=== PATIENT | female | born 1930 | race Caucasian/White ===

== ENCOUNTER → 2016-04-02 | Outpatient (CLI) | payer MEDICARE ==
[~2016-04-02] MED LIST: AEROSPAN80 MCG/Act; CIPRO 250MG TA250 MG PO; CLONIDINE0.1 MG PO; CRESTOR20 MG PO; CRESTOR5 MG PO; LASIX20 MG; LIDOCAINE 5%35.44 GM TP; LIDODERM PATCH TP; LISINOPRIL20 MG; PLAVIX 75MG TAB75 MG; PLAVIX 75MG TAB75 MG PO; PRILOSEC 20MG20 MG PO; PROPRANOLOL HCL20 MG PO; QVAR0.08 MG/AC; SINGULAIR10 MG PO; TYLENOL W CODEIN1 ML PO; VENTOLIN0.09 MG; ZANTAC 150MG T150 MG; ZYRTEC 10MG10 MG; ZYRTEC10 MG PO; [UNRECOGNIZED DRUG - OTHER]
== END ==
LOC: RAD 09:00
DX: R10.84 Generalized abdominal pain (principal); R13.14 Dysphagia, pharyngoesophageal phase

== ENCOUNTER → 2017-05-19 | Outpatient (CLI) | payer MEDICARE ==
[2015-06-08 17:50] VITALS: BP 124/75
[2017-05-19 10:23] LABS: EOS # 0.1 (0.04-0.40); EOS % 1.3 % (1.0-5.0); HEMATOCRIT 40.9 % (37.0-47.0); HEMOGLOBIN 13.7 g/dL (12.5-16.0); LYMPH# 1.5 (1.50-4.00); MEAN CELL VOLUME 90 fl (78-100); MEAN CORPUSCULAR HEMOGLOBIN 30 pg (27-31); MEAN CORPUSCULAR HGB CONC 34 g/dL (33-37); MONO # 0.6 (0.20-0.80); NEU # 4.7 (1.40-6.50); PLATELET COUNT 227 K/mm3 (130-400); RED BLOOD COUNT 4.57 M/mm3 (4.10-5.30); RED CELL DISTRIBUTION WIDTH 13.8 % (11.5-14.5); WHITE BLOOD COUNT 6.9 K/mm3 (4.8-10.8)
[2017-05-19 11:01] LABS: ALBUMIN 3.9 g/dL (3.5-5.0); BUN/CREATININE RATIO 12.4 (6.0-26.0); CALCIUM 9.4 mg/dL (8.4-10.2); POTASSIUM 4.7 mmol/L (3.6-5.0); TOTAL BILIRUBIN 0.9 mg/dL (0.2-1.3)
== END ==
LOC: LAB 09:32
PROVIDERS: Nurse Practitioner Family
DX: J98.4 Other disorders of lung (principal); G20 Parkinson's disease; I10 Essential (primary) hypertension; R53.81 Other malaise; I63.9 Cerebral infarction, unspecified

== ENCOUNTER 2017-09-10 13:05 | Emergency (ER) | payer MEDICARE ==
[~2017-09-10] VITALS: Wt 76.4 kg
[2017-09-10] MEDS ORDERED: CARBIDOPA/LEVOD1 TE1 PO (13:28)
[2017-09-10 14:46] LABS: EOS # 0.1 (0.04-0.40); HEMATOCRIT 37.2 % (37.0-47.0); HEMOGLOBIN 12.5 g/dL (12.5-16.0); LYMPH# 1.7 (1.50-4.00); MEAN CELL VOLUME 90 fl (78-100); MEAN CORPUSCULAR HEMOGLOBIN 30 pg (27-31); MEAN CORPUSCULAR HGB CONC 34 g/dL (33-37); MEAN PLATELET VOLUME 9.6 fl (7.4-10.4); MONO # 0.7 (0.20-0.80); NEU # 4.7 (1.40-6.50); PLATELET COUNT 199 K/mm3 (130-400); RED BLOOD COUNT 4.14 M/mm3 (4.10-5.30); RED CELL DISTRIBUTION WIDTH 13.7 % (11.5-14.5); WHITE BLOOD COUNT 7.2 K/mm3 (4.8-10.8)
[2017-09-10 14:56] LABS: ALBUMIN 3.6 g/dL (3.5-5.0); BUN/CREATININE RATIO 10.4 (6.0-26.0); CALCIUM 8.5 mg/dL (8.4-10.2); POTASSIUM 4.1 mmol/L (3.6-5.0); TOTAL BILIRUBIN 0.4 mg/dL (0.2-1.3); TOTAL PROTEIN 6.4 g/dL (6.3-8.2)
[2017-09-10 15:05] LABS: PROTHROMBIN TIME 9.1 SECONDS (9.0-12.0)
[2017-09-10 15:07] LABS: URINE APPEARANCE CLEAR; URINE BILIRUBIN NEGATIVE (NEGATIVE); URINE BLOOD NEGATIVE (NEGATIVE); URINE COLOR YELLOW; URINE GLUCOSE NEGATIVE (NEGATIVE); URINE KETONE NEGATIVE (NEGATIVE); URINE LEUKOCYTE ESTERASE NEGATIVE (NEGATIVE); URINE NITRATE NEGATIVE (NEGATIVE); URINE PROTEIN(semi-quant) NEGATIVE (NEGATIVE); URINE UROBILINOGEN NORMAL (NORMAL)
[2017-09-10 15:08] LABS: URINE WBC 0-1 /hpf (0-3)
[2017-09-10 15:50] VITALS: BP 162/72
== END 2017-09-10 15:59 | disposition home or self-care (01) ==
LOC: ED 13:05
PROVIDERS: Physician Assistant
DX: K92.2 Gastrointestinal hemorrhage, unspecified (principal); Z85.038 Personal history of other malignant neoplasm of large intestine; J45.909 Unspecified asthma, uncomplicated; I69.951 Hemiplegia and hemiparesis following unspecified cerebrovascular disease affecting right dominant side; Z79.02 Long term (current) use of antithrombotics/antiplatelets

== ENCOUNTER → 2017-09-16 | Outpatient (CLI) | payer MEDICARE ==
[2017-09-10 15:50] VITALS: BP 162/72
[~2017-09-16] MED LIST changes: +CARBIDOPA/LEVOD1 TE1 PO
[2017-09-16 09:20] LABS: EOS # 0.1 (0.04-0.40); HEMATOCRIT 39.3 % (37.0-47.0); HEMOGLOBIN 13.2 g/dL (12.5-16.0); LYMPH# 1.8 (1.50-4.00); MEAN CELL VOLUME 91 fl (78-100); MEAN CORPUSCULAR HEMOGLOBIN 31 pg (27-31); MEAN CORPUSCULAR HGB CONC 34 g/dL (33-37); MONO # 0.6 (0.20-0.80); NEU # 3.8 (1.40-6.50); PLATELET COUNT 203 K/mm3 (130-400); RED BLOOD COUNT 4.33 M/mm3 (4.10-5.30); RED CELL DISTRIBUTION WIDTH 13.8 % (11.5-14.5); WHITE BLOOD COUNT 6.4 K/mm3 (4.8-10.8)
== END ==
LOC: LAB 08:43
PROVIDERS: Nurse Practitioner Family
DX: K62.5 Hemorrhage of anus and rectum (principal)

== ENCOUNTER → 2018-08-20 | Outpatient (CLI) | payer MEDICARE ==
[2018-08-20 09:47] LABS: EOS # 0.1 (0.04-0.40); EOS % 1.7 % (1.0-5.0); HEMOGLOBIN 14.4 g/dL (12.5-16.0); LYMPH# 1.8 (1.50-4.00); MEAN CELL VOLUME 90 fl (78-100); MEAN CORPUSCULAR HEMOGLOBIN 31 pg (27-31); MEAN CORPUSCULAR HGB CONC 34 g/dL (33-37); MEAN PLATELET VOLUME 9.8 fl (7.4-10.4); MONO # 0.5 (0.20-0.80); NEU # 3.6 (1.40-6.50); PLATELET COUNT 199 K/mm3 (130-400); RED BLOOD COUNT 4.65 M/mm3 (4.10-5.30); RED CELL DISTRIBUTION WIDTH 13.9 % (11.5-14.5); WHITE BLOOD COUNT 6.1 K/mm3 (4.8-10.8)
[2018-08-20 10:04] LABS: ALBUMIN 3.9 g/dL (3.4-4.8); AST-SGOT 18 U/L (5-34); CALCIUM 9.4 mg/dL (8.3-10.5); CARBON DIOXIDE 26 mmol/L (23-31); GLUCOSE 96 mg/dL (65-105); POTASSIUM 4.2 mmol/L (3.5-5.1); SODIUM 141 mmol/L (136-145); TOTAL BILIRUBIN 0.8 mg/dL (0.2-1.2); TOTAL PROTEIN 6.8 g/dL (6.2-8.1)
[2018-08-20 11:42] LABS: ALT/SGPT < 6 U/L (0-55)
== END ==
LOC: LAB 09:30
PROVIDERS: Physician Assistant
DX: Z76.89 Persons encountering health services in other specified circumstances (principal); I63.9 Cerebral infarction, unspecified; M54.9 Dorsalgia, unspecified; G89.29 Other chronic pain; I10 Essential (primary) hypertension; E78.5 Hyperlipidemia, unspecified; G20 Parkinson's disease; J98.4 Other disorders of lung; Z87.19 Personal history of other diseases of the digestive system

== ENCOUNTER → 2018-12-03 | Outpatient (CLI) | payer MEDICARE ==
[2018-12-03 15:57] LABS: ALBUMIN 3.8 g/dL (3.4-4.8); POTASSIUM 3.5 mmol/L (3.5-5.1); SODIUM 143 mmol/L (136-145)
[2018-12-03 15:58] LABS: CALCIUM 8.7 mg/dL (8.3-10.5)
[2018-12-03 15:59] LABS: GLUCOSE 113 mg/dL (65-105); TOTAL PROTEIN 6.3 g/dL (6.2-8.1)
[2018-12-03 16:01] LABS: CARBON DIOXIDE 26 mmol/L (23-31); TOTAL BILIRUBIN 0.7 mg/dL (0.2-1.2)
[2018-12-03 16:05] LABS: AST-SGOT 13 U/L (5-34)
[2018-12-03 16:16] LABS: EOS # 0.2 (0.04-0.40); EOS % 2.6 % (1.0-5.0); HEMOGLOBIN 12.9 g/dL (12.5-16.0); LYMPH# 1.8 (1.50-4.00); MEAN CELL VOLUME 92 fl (78-100); MEAN CORPUSCULAR HEMOGLOBIN 31 pg (27-31); MEAN CORPUSCULAR HGB CONC 33 g/dL (33-37); MEAN PLATELET VOLUME 10.2 fl (7.4-10.4); MONO # 0.7 (0.20-0.80); PLATELET COUNT 241 K/mm3 (130-400); RED BLOOD COUNT 4.23 M/mm3 (4.10-5.30); RED CELL DISTRIBUTION WIDTH 14.3 % (11.5-14.5); WHITE BLOOD COUNT 6.8 K/mm3 (4.8-10.8)
[2018-12-03 16:17] LABS: ALT/SGPT < 6 U/L (0-55)
[2018-12-03 16:57] LABS: PH-URINE 5.5 (5.0 - 8.0); URINE APPEARANCE CLEAR; URINE COLOR YELLOW; URINE GLUCOSE NEGATIVE (NEGATIVE); URINE PROTEIN(semi-quant) TRACE mg/dL (NEGATIVE)
[2018-12-03 16:58] LABS: URINE BILIRUBIN NEGATIVE (NEGATIVE); URINE BLOOD 50 ery/uL (NEGATIVE); URINE KETONE NEGATIVE (NEGATIVE); URINE LEUKOCYTE ESTERASE 2+ (NEGATIVE); URINE MUCUS PRESENT (NOT PRESENT); URINE NITRATE NEGATIVE (NEGATIVE); URINE UROBILINOGEN 1 mg/dL (NORMAL)
[2018-12-03 17:20] LABS: ERYTHROCYTE SEDIMENTATION RATE 21 mm/hr (0-30)
== END ==
LOC: RAD 14:55
PROVIDERS: Physician Assistant
DX: J98.4 Other disorders of lung (principal); G20 Parkinson's disease; I10 Essential (primary) hypertension; E78.5 Hyperlipidemia, unspecified; I63.9 Cerebral infarction, unspecified; J30.9 Allergic rhinitis, unspecified; J44.9 Chronic obstructive pulmonary disease, unspecified; Z99.81 Dependence on supplemental oxygen

== ENCOUNTER 2018-12-04 08:36 | Outpatient (RCR) | payer MEDICARE | END 2018-12-04 09:00 | disposition still patient (30) | LOC: SPEECH 08:36 | DX: J98.4 Other disorders of lung (principal); G20 Parkinson's disease; I10 Essential (primary) hypertension; I63.9 Cerebral infarction, unspecified; J30.9 Allergic rhinitis, unspecified; R41.3 Other amnesia; R29.6 Repeated falls; R41.89 Other symptoms and signs involving cognitive functions and awareness; Z99.81 Dependence on supplemental oxygen ==

== ENCOUNTER → 2018-12-09 | Outpatient (CLI) | payer MEDICARE | LOC: RAD 08:30 | DX: G20 Parkinson's disease (principal); F02.80 Dementia in other diseases classified elsewhere, unspecified severity, without behavioral disturbance, psychotic disturbance, mood disturbance, and anxiety; G62.9 Polyneuropathy, unspecified ==

== ENCOUNTER 2019-01-14 15:58 | Emergency (ER) | payer MEDICARE ==
[~2019-01-14] VITALS: Wt 71.7 kg
[2019-01-14] MEDS ORDERED: CARBIDOPA/LEVOD1 TE1 PO (16:15)
[2019-01-14] MEDS ORDERED: DONEPEZIL HCL5 M1 PO (16:16)
[2019-01-14] MEDS ORDERED: LOSARTAN POTASS50 M1 PO (16:16)
[2019-01-14 18:11] LABS: ALBUMIN 3.8 g/dL (3.4-4.8)
[2019-01-14 18:12] LABS: POTASSIUM 3.8 mmol/L (3.5-5.1); SODIUM 141 mmol/L (136-145)
[2019-01-14 18:13] LABS: CALCIUM 8.9 mg/dL (8.3-10.5); EOS # 0.1 (0.04-0.40); EOS % 2.1 % (1.0-5.0); HEMATOCRIT 42.2 % (37.0-47.0); LYMPH# 1.5 (1.50-4.00); MEAN CELL VOLUME 91 fl (78-100); MEAN CORPUSCULAR HEMOGLOBIN 30 pg (27-31); MEAN CORPUSCULAR HGB CONC 33 g/dL (33-37); MEAN PLATELET VOLUME 10.4 fl (7.4-10.4); MONO # 0.6 (0.20-0.80); NEU # 4.1 (1.40-6.50); PLATELET COUNT 186 K/mm3 (130-400); RED BLOOD COUNT 4.65 M/mm3 (4.10-5.30); RED CELL DISTRIBUTION WIDTH 14.7 % (11.5-14.5); WHITE BLOOD COUNT 6.3 K/mm3 (4.8-10.8)
[2019-01-14 18:14] LABS: GLUCOSE 91 mg/dL (65-105); TOTAL PROTEIN 6.4 g/dL (6.2-8.1)
[2019-01-14 18:15] LABS: CARBON DIOXIDE 24 mmol/L (23-31)
[2019-01-14 18:16] LABS: TOTAL BILIRUBIN 1.2 mg/dL (0.2-1.2)
[2019-01-14 18:19] LABS: AST-SGOT 10 U/L (5-34)
[2019-01-14 18:23] LABS: ALT/SGPT < 6 U/L (0-55)
[2019-01-14 18:27] LABS: TROPONIN-I < 0.03 ng/mL (<0.030)
[2019-01-14 18:27] LABS: URINE COLOR YELLOW
[2019-01-14 18:28] LABS: URINE APPEARANCE CLEAR; URINE BILIRUBIN NEGATIVE (NEGATIVE); URINE BLOOD TRACE (NEGATIVE); URINE GLUCOSE NEGATIVE (NEGATIVE); URINE KETONE NEGATIVE (NEGATIVE); URINE LEUKOCYTE ESTERASE NEGATIVE (NEGATIVE); URINE MUCUS PRESENT (NOT PRESENT); URINE NITRATE NEGATIVE (NEGATIVE); URINE PROTEIN(semi-quant) TRACE mg/dL (NEGATIVE); URINE UROBILINOGEN NORMAL (NORMAL)
[2019-01-14 19:26] VITALS: BP 160/73
[2019-01-14 20:27] LABS: PROTHROMBIN TIME 8.8 SECONDS (9.0-12.0)
== END 2019-01-14 19:30 | disposition other institution (70) ==
LOC: ED 15:58
PROVIDERS: Nurse Practitioner Family
DX: J18.1 Lobar pneumonia, unspecified organism (principal); J44.9 Chronic obstructive pulmonary disease, unspecified; I11.0 Hypertensive heart disease with heart failure; I50.9 Heart failure, unspecified; I25.10 Atherosclerotic heart disease of native coronary artery without angina pectoris; I25.2 Old myocardial infarction; E78.5 Hyperlipidemia, unspecified; G20 Parkinson's disease; Z86.73 Personal history of transient ischemic attack (TIA), and cerebral infarction without residual deficits; Z85.038 Personal history of other malignant neoplasm of large intestine; Z88.0 Allergy status to penicillin
CPT/HCPCS: J2405; J7030

== ENCOUNTER 2019-01-14 19:12 | Inpatient (IN) | payer MEDICARE ==
[~2019-01-14] VITALS: Ht 170.2 cm; Wt 69.3 kg
[~2019-01-14 19:12] MED LIST changes: +DONEPEZIL HCL5 M1 PO; +LOSARTAN POTASS50 M1 PO
[2019-01-14 20:28] VITALS: BP 160/73
[2019-01-14 20:36] VITALS: BP 160/73
[2019-01-14 23:11] VITALS: BP 156/67
[2019-01-15 02:57] VITALS: BP 167/69
[2019-01-15 06:27] VITALS: BP 148/64
[2019-01-15 10:41] VITALS: BP 180/75
[2019-01-15 15:00] VITALS: BP 155/64
[2019-01-15 18:23] VITALS: BP 127/70
[2019-01-15 22:40] VITALS: BP 176/71
[2019-01-16 02:57] VITALS: BP 158/67
[2019-01-16 06:03] VITALS: BP 137/66
[2019-01-16 07:43] LABS: EOS % 0.1 % (1.0-5.0); HEMATOCRIT 40.8 % (37.0-47.0); HEMOGLOBIN 13.5 g/dL (12.5-16.0); LYMPH# 1.7 (1.50-4.00); MEAN CELL VOLUME 91 fl (78-100); MEAN CORPUSCULAR HEMOGLOBIN 30 pg (27-31); MEAN CORPUSCULAR HGB CONC 33 g/dL (33-37); MEAN PLATELET VOLUME 10.1 fl (7.4-10.4); PLATELET COUNT 286 K/mm3 (130-400); RED BLOOD COUNT 4.48 M/mm3 (4.10-5.30); RED CELL DISTRIBUTION WIDTH 14.5 % (11.5-14.5); WHITE BLOOD COUNT 14.1 K/mm3 (4.8-10.8)
[2019-01-16 07:45] LABS: NEU # 11.3 (1.40-6.50)
[2019-01-16 07:51] LABS: POTASSIUM 3.1 mmol/L (3.5-5.1)
[2019-01-16 07:52] LABS: CALCIUM 8.9 mg/dL (8.3-10.5)
[2019-01-16 11:00] VITALS: BP 149/61
[2019-01-16 15:20] VITALS: BP 143/64
[2019-01-16 18:29] VITALS: BP 154/77
[2019-01-16 22:52] VITALS: BP 147/71
[2019-01-17] VITALS (7 sets, daily range): BP systolic 136–192; BP diastolic 50–124
[2019-01-17 11:28] LABS: SODIUM 144 mmol/L (136-145)
[2019-01-17 11:29] LABS: CALCIUM 8.6 mg/dL (8.3-10.5)
[2019-01-17 11:30] LABS: GLUCOSE 92 mg/dL (65-105)
[2019-01-17 11:31] LABS: CARBON DIOXIDE 26 mmol/L (23-31)
[2019-01-17 11:49] LABS: POTASSIUM 2.8 mmol/L (3.5-5.1)
[2019-01-18 03:48] VITALS: BP 138/70
[2019-01-18 06:18] VITALS: BP 133/72
[2019-01-18 06:53] LABS: EOS # 0.2 (0.04-0.40); EOS % 3.5 % (1.0-5.0); HEMATOCRIT 34.2 % (37.0-47.0); HEMOGLOBIN 11.4 g/dL (12.5-16.0); LYMPH# 1.4 (1.50-4.00); MEAN CELL VOLUME 91 fl (78-100); MEAN CORPUSCULAR HEMOGLOBIN 31 pg (27-31); MEAN CORPUSCULAR HGB CONC 33 g/dL (33-37); MEAN PLATELET VOLUME 10.1 fl (7.4-10.4); MONO # 0.7 (0.20-0.80); NEU # 3.7 (1.40-6.50); PLATELET COUNT 195 K/mm3 (130-400); RED BLOOD COUNT 3.74 M/mm3 (4.10-5.30); RED CELL DISTRIBUTION WIDTH 14.7 % (11.5-14.5); WHITE BLOOD COUNT 6.1 K/mm3 (4.8-10.8)
[2019-01-18 07:10] LABS: CALCIUM 8.1 mg/dL (8.3-10.5); POTASSIUM 3.2 mmol/L (3.5-5.1)
[2019-01-18 10:49] VITALS: BP 162/73
[2019-01-18 14:44] VITALS: BP 157/66
[2019-01-18 18:07] VITALS: BP 163/82
[2019-01-18 22:46] VITALS: BP 168/58
[2019-01-19 02:47] VITALS: BP 148/74
[2019-01-19 06:35] VITALS: BP 156/78
[2019-01-19 11:00] VITALS: BP 154/74
[2019-01-19 14:11] VITALS: BP 163/74
== END 2019-01-19 15:07 | disposition swing bed (61) | DRG 177 ==
LOC: MED/SURG 19:12
PROVIDERS: Family Medicine; Nurse Practitioner Primary Care; ADMIT Nurse Practitioner Family
DX: J69.0 Pneumonitis due to inhalation of food and vomit (principal); I63.9 Cerebral infarction, unspecified; G81.91 Hemiplegia, unspecified affecting right dominant side; R53.81 Other malaise; G20 Parkinson's disease; J44.9 Chronic obstructive pulmonary disease, unspecified; Z99.81 Dependence on supplemental oxygen; I10 Essential (primary) hypertension; R29.810 Facial weakness; I25.10 Atherosclerotic heart disease of native coronary artery without angina pectoris; Z85.038 Personal history of other malignant neoplasm of large intestine; Z88.5 Allergy status to narcotic agent; Z88.0 Allergy status to penicillin; Z88.2 Allergy status to sulfonamides; Z88.6 Allergy status to analgesic agent; Z91.012 Allergy to eggs
CPT/HCPCS: A4216; C9113; J0696; J1650; J2930; J3480; J3490; J7030; J7042

== ENCOUNTER 2019-01-18 14:35 | Inpatient (IN) | payer MEDICARE ==
[~2019-01-18] VITALS: Ht 170.2 cm; Wt 66.8 kg
[2019-01-19 15:15] VITALS: BP 167/62
[2019-01-19 15:20] VITALS: BP 167/62
[2019-01-19 18:03] VITALS: BP 159/86
[2019-01-20 06:10] VITALS: BP 156/57
[2019-01-20 06:30] LABS: EOS # 0.3 (0.04-0.40); EOS % 3.8 % (1.0-5.0); HEMOGLOBIN 10.8 g/dL (12.5-16.0); LYMPH# 1.2 (1.50-4.00); MEAN CELL VOLUME 92 fl (78-100); MEAN CORPUSCULAR HEMOGLOBIN 30 pg (27-31); MEAN CORPUSCULAR HGB CONC 33 g/dL (33-37); MEAN PLATELET VOLUME 10.5 fl (7.4-10.4); MONO # 0.6 (0.20-0.80); PLATELET COUNT 197 K/mm3 (130-400); RED BLOOD COUNT 3.59 M/mm3 (4.10-5.30); RED CELL DISTRIBUTION WIDTH 14.9 % (11.5-14.5); WHITE BLOOD COUNT 7.2 K/mm3 (4.8-10.8)
[2019-01-20 06:43] LABS: CALCIUM 8.2 mg/dL (8.3-10.5)
[2019-01-20 19:12] VITALS: BP 161/69
[2019-01-21 06:05] VITALS: BP 174/67
[2019-01-21 18:02] VITALS: BP 162/67
[2019-01-22 06:17] VITALS: BP 149/62
[2019-01-22 18:05] VITALS: BP 153/73
[2019-01-23 06:22] VITALS: BP 149/72
[2019-01-23 18:07] VITALS: BP 126/75
[2019-01-24 06:22] VITALS: BP 157/72
[2019-01-24 18:38] VITALS: BP 155/66
[2019-01-25 06:20] VITALS: BP 145/70
[2019-01-25 18:35] VITALS: BP 128/72
[2019-01-26 06:18] VITALS: BP 132/55
[2019-01-26 17:56] VITALS: BP 116/85; BP 16/85
[2019-01-27 06:11] VITALS: BP 132/52
[2019-01-27 17:37] VITALS: BP 130/67
[2019-01-28 06:25] VITALS: BP 128/63
[2019-01-28 19:15] VITALS: BP 135/58
[2019-01-29 06:22] VITALS: BP 122/53
[2019-01-29 09:19] LABS: EOS # 0.3 (0.04-0.40); EOS % 2.4 % (1.0-5.0); HEMATOCRIT 38.4 % (37.0-47.0); HEMOGLOBIN 12.5 g/dL (12.5-16.0); LYMPH# 1.4 (1.50-4.00); MEAN CELL VOLUME 93 fl (78-100); MEAN CORPUSCULAR HEMOGLOBIN 30 pg (27-31); MEAN CORPUSCULAR HGB CONC 33 g/dL (33-37); MEAN PLATELET VOLUME 10.7 fl (7.4-10.4); MONO # 0.7 (0.20-0.80); NEU # 8.1 (1.40-6.50); PLATELET COUNT 251 K/mm3 (130-400); RED BLOOD COUNT 4.15 M/mm3 (4.10-5.30); RED CELL DISTRIBUTION WIDTH 16.1 % (11.5-14.5); WHITE BLOOD COUNT 10.5 K/mm3 (4.8-10.8)
[2019-01-29 09:24] LABS: ALBUMIN 3.7 g/dL (3.4-4.8); POTASSIUM 4.5 mmol/L (3.5-5.1)
[2019-01-29 09:25] LABS: CALCIUM 9.4 mg/dL (8.3-10.5)
[2019-01-29 09:26] LABS: TOTAL PROTEIN 6.4 g/dL (6.2-8.1)
[2019-01-29 18:01] VITALS: BP 125/75
[2019-01-30 06:12] VITALS: BP 126/66
[2019-01-30 07:00] VITALS: BP 126/66
[2019-01-30 18:30] VITALS: BP 151/79
[2019-01-31 06:28] VITALS: BP 132/65
[2019-01-31 18:37] VITALS: BP 142/73
[2019-02-01 06:23] VITALS: BP 127/70
[2019-02-01 18:11] VITALS: BP 161/61
[2019-02-02 06:21] VITALS: BP 132/54
[2019-02-02 10:27] LABS: EOS # 0.3 (0.04-0.40); EOS % 3.3 % (1.0-5.0); HEMATOCRIT 38.9 % (37.0-47.0); LYMPH# 1.4 (1.50-4.00); MEAN CELL VOLUME 91 fl (78-100); MEAN CORPUSCULAR HEMOGLOBIN 30 pg (27-31); MEAN CORPUSCULAR HGB CONC 33 g/dL (33-37); MEAN PLATELET VOLUME 10.6 fl (7.4-10.4); MONO # 0.6 (0.20-0.80); NEU # 5.6 (1.40-6.50); PLATELET COUNT 292 K/mm3 (130-400); RED BLOOD COUNT 4.27 M/mm3 (4.10-5.30); RED CELL DISTRIBUTION WIDTH 16.5 % (11.5-14.5); WHITE BLOOD COUNT 7.9 K/mm3 (4.8-10.8)
[2019-02-02 10:31] LABS: ALBUMIN 3.9 g/dL (3.4-4.8); POTASSIUM 4.5 mmol/L (3.5-5.1); SODIUM 139 mmol/L (136-145)
[2019-02-02 10:32] LABS: CALCIUM 9.7 mg/dL (8.3-10.5)
[2019-02-02 10:33] LABS: GLUCOSE 107 mg/dL (65-105); TOTAL PROTEIN 6.8 g/dL (6.2-8.1)
[2019-02-02 10:34] LABS: CARBON DIOXIDE 23 mmol/L (23-31)
[2019-02-02 10:35] LABS: TOTAL BILIRUBIN 0.8 mg/dL (0.2-1.2)
[2019-02-02 10:39] LABS: AST-SGOT 16 U/L (5-34)
[2019-02-02 10:43] LABS: ALT/SGPT < 6 U/L (0-55)
[2019-02-02 18:45] VITALS: BP 134/50
[2019-02-03 06:20] VITALS: BP 127/47
[2019-02-03 18:14] VITALS: BP 143/62
[2019-02-04 06:05] VITALS: BP 130/57
[2019-02-04 18:00] VITALS: BP 138/55
[2019-02-05 06:13] VITALS: BP 145/60
[2019-02-05] MEDS ORDERED: DOXYCYCLINE HYC50 M1 PO (08:40)
[2019-02-05] MEDS ORDERED: PANTOPRAZOLE SO40 MG PO (08:41)
[2019-02-05] MEDS ORDERED: RIVASTIGMINE1 EACH TD (08:42)
[2019-02-05] MEDS ORDERED: TYLENOL 325MG325 MG PO (08:50)
[2019-02-05] MEDS ORDERED: IPRATROPIUM BROM3 M1 IH (08:53)
== END 2019-02-05 11:09 | disposition home health service (06) | DRG 56 ==
LOC: MED/SURG 14:35
PROVIDERS: ADMIT Nurse Practitioner Primary Care
DX: I69.951 Hemiplegia and hemiparesis following unspecified cerebrovascular disease affecting right dominant side (principal); J18.9 Pneumonia, unspecified organism; J98.11 Atelectasis; L97.419 Non-pressure chronic ulcer of right heel and midfoot with unspecified severity; I25.10 Atherosclerotic heart disease of native coronary artery without angina pectoris; I50.9 Heart failure, unspecified; J44.9 Chronic obstructive pulmonary disease, unspecified; I11.0 Hypertensive heart disease with heart failure; G20 Parkinson's disease; Z66 Do not resuscitate; R13.10 Dysphagia, unspecified; A49.02 Methicillin resistant Staphylococcus aureus infection, unspecified site; Z90.710 Acquired absence of both cervix and uterus; Z88.0 Allergy status to penicillin; Z88.2 Allergy status to sulfonamides; Z88.5 Allergy status to narcotic agent
CPT/HCPCS: A9585; J1650; J2405

== ENCOUNTER → 2019-03-19 | Outpatient (CLI) | payer MEDICARE ==
[~2019-03-19] MED LIST changes: +DOXYCYCLINE HYC50 M1 PO; +IPRATROPIUM BROM3 M1 IH; +PANTOPRAZOLE SO40 MG PO; +RIVASTIGMINE1 EACH TD; +TYLENOL 325MG325 MG PO
== END ==
LOC: LAB 12:06
DX: L97.412 Non-pressure chronic ulcer of right heel and midfoot with fat layer exposed (principal)

== ENCOUNTER → 2019-04-15 | Outpatient (CLI) | payer MEDICARE ==
[2019-04-15 15:47] LABS: EOS # 0.2 (0.04-0.40); EOS % 3.1 % (1.0-5.0); HEMATOCRIT 38.3 % (37.0-47.0); HEMOGLOBIN 12.6 g/dL (12.5-16.0); LYMPH# 1.6 (1.50-4.00); MEAN CELL VOLUME 91 fl (78-100); MEAN CORPUSCULAR HEMOGLOBIN 30 pg (27-31); MEAN CORPUSCULAR HGB CONC 33 g/dL (33-37); MEAN PLATELET VOLUME 10.2 fl (7.4-10.4); MONO # 0.7 (0.20-0.80); NEU # 4.8 (1.40-6.50); PLATELET COUNT 284 K/mm3 (130-400); RED BLOOD COUNT 4.22 M/mm3 (4.10-5.30); RED CELL DISTRIBUTION WIDTH 16.3 % (11.5-14.5); WHITE BLOOD COUNT 7.4 K/mm3 (4.8-10.8)
[2019-04-15 15:54] LABS: ALBUMIN 3.9 g/dL (3.4-4.8); POTASSIUM 3.7 mmol/L (3.5-5.1); SODIUM 141 mmol/L (136-145)
[2019-04-15 15:55] LABS: CALCIUM 8.9 mg/dL (8.3-10.5)
[2019-04-15 15:56] LABS: GLUCOSE 98 mg/dL (65-105); TOTAL PROTEIN 6.9 g/dL (6.2-8.1)
[2019-04-15 15:57] LABS: CARBON DIOXIDE 26 mmol/L (23-31)
[2019-04-15 15:58] LABS: TOTAL BILIRUBIN 1.1 mg/dL (0.2-1.2)
[2019-04-15 16:01] LABS: AST-SGOT 9 U/L (5-34)
[2019-04-15 16:05] LABS: ALT/SGPT < 6 U/L (0-55)
== END ==
LOC: LAB 15:26
PROVIDERS: Physician Assistant
DX: C18.9 Malignant neoplasm of colon, unspecified (principal); I63.9 Cerebral infarction, unspecified; J98.4 Other disorders of lung; G20 Parkinson's disease; K92.1 Melena; Z92.29 Personal history of other drug therapy

== ENCOUNTER → 2019-04-22 | Outpatient (CLI) | payer MEDICARE ==
[2019-04-22 14:23] LABS: EOS # 0.1 (0.04-0.40); EOS % 1.6 % (1.0-5.0); HEMATOCRIT 38.2 % (37.0-47.0); HEMOGLOBIN 12.5 g/dL (12.5-16.0); LYMPH# 1.1 (1.50-4.00); MEAN CELL VOLUME 89 fl (78-100); MEAN CORPUSCULAR HEMOGLOBIN 29 pg (27-31); MEAN CORPUSCULAR HGB CONC 33 g/dL (33-37); MEAN PLATELET VOLUME 10.6 fl (7.4-10.4); MONO # 0.6 (0.20-0.80); NEU # 4.9 (1.40-6.50); PLATELET COUNT 251 K/mm3 (130-400); RED BLOOD COUNT 4.28 M/mm3 (4.10-5.30); RED CELL DISTRIBUTION WIDTH 15.8 % (11.5-14.5); WHITE BLOOD COUNT 6.7 K/mm3 (4.8-10.8)
[2019-04-22 14:35] LABS: ALBUMIN 3.8 g/dL (3.4-4.8)
[2019-04-22 14:36] LABS: POTASSIUM 3.6 mmol/L (3.5-5.1); SODIUM 136 mmol/L (136-145)
[2019-04-22 14:37] LABS: CALCIUM 8.6 mg/dL (8.3-10.5)
[2019-04-22 14:38] LABS: GLUCOSE 102 mg/dL (65-105); TOTAL PROTEIN 6.6 g/dL (6.2-8.1)
[2019-04-22 14:39] LABS: CARBON DIOXIDE 24 mmol/L (23-31)
[2019-04-22 14:40] LABS: TOTAL BILIRUBIN 1.2 mg/dL (0.2-1.2)
[2019-04-22 14:43] LABS: AST-SGOT 10 U/L (5-34)
[2019-04-22 14:51] LABS: ALT/SGPT < 6 U/L (0-55)
== END ==
LOC: LAB 14:03
PROVIDERS: Physician Assistant
DX: I10 Essential (primary) hypertension (principal); G20 Parkinson's disease; J98.4 Other disorders of lung; K92.1 Melena